=== PATIENT | male | born 1955 | race Caucasian/White ===

== ENCOUNTER 2021-05-18 10:56 | Inpatient (IN) | payer OTHER ==
[~2021-05-18] VITALS: Ht 175.3 cm; Wt 86.6 kg
[~2021-05-18 10:56] MED LIST: ALPHAGAN P5 ML OPHTHALMIC; ASPIRIN EC81 M1 PO; AUGMENTIN 875-1 EACH PO; BENICAR20 MG PO; CELEBREX 200 M200 M1 PO; HYDROXYCHLOROQ200 M1 PO; LIPITOR40 MG PO; METHOTREXATE 22.5 MG PO; SULFASALAZINE25 GM PO; TENORMIN50 MG PO; XALATAN2.5 M1 OP
[2021-05-18 12:10] VITALS: BP 145/83
[2021-05-18 14:23] LABS: HEMATOCRIT 40.8 % (42.0-52.0); HEMOGLOBIN 13.6 gm/dL (14.0-18.0); MCH 31.9 pg (26.0-34.0); MCHC 33.3 g/dL (28.0-37.0); MCV 95.7 fL (80.0-100.0); RBC 4.26 mil/uL (4.50-6.00); RDW 13.6 % (10.5-14.5); WBC 5.5 thou/uL (4.0-11.0)
[2021-05-18 14:33] LABS: APTT 36.3 Seconds (24.5-32.8); INR 1.06; PROTIME 11.5 Seconds (10.5-12.1)
[2021-05-18 14:41] LABS: ALBUMIN 3.5 g/dL (3.4-5.0); ANION GAP 10 mmol/L (7-16); BUN 16 mg/dL (7-18); CALCIUM 8.9 mg/dL (8.5-10.1); CHLORIDE 106 mmol/L (98-107); CHOLESTEROL 135 mg/dL (<200); CO2 28 mmol/L (21-32); CREATININE 1.1 mg/dL (0.7-1.3); GLUCOSE 91 mg/dL (74-106); HDL CHOLESTEROL 40 mg/dL (>40); LDL CHOLESTEROL 70 mg/dL (<100); POTASSIUM 4.1 mmol/L (3.5-5.1); SGOT 16 U/L (15-37); SGPT 21 U/L (30-65); SODIUM 144 mmol/L (136-145); TC:HDL 3.4 Ratio (Not establshd); TOTAL BILIRUBIN 1.3 mg/dL (0.2-1.0); TOTAL PROTEIN 6.7 g/dL (6.4-8.2); TRIGLYCERIDE 129 mg/dL (<150); VLDL 26 mg/dL (<40)
[2021-05-18 14:42] LABS: SERUM ASSESSMENT Clear
[2021-05-18 15:00] VITALS: BP 152/90
[2021-05-18] MEDS ORDERED: METOPROLOL TART25 MG PO (16:21)
--- NOTE | 2021-05-18 18:16 | NUR ---
PT TRANFERED TO THE UNIT FROM [facility] TO HAVE OPEN HEART SURGERY IN THE AM. PT ORIENTED TO ROOM AND BEDSPACE. BLOOD TO LAB FOR TESTING - NASAL SWAB/ URINE TO LAB. NO CO'S OF PAIN OR NASUEA. QASIM DIET AND FLUIDS - TO BE NPO AFTER MN. UP AD TONI IN ROOM. PERMIT SIGNED - SEEN BY DR GONZALEZ. NO CO'S AT THE PRESENT TIME.
[2021-05-18 18:46] LABS: URINE BILIRUBIN NEGATIVE (Negative); URINE BLOOD NEGATIVE (Negative); URINE CLARITY CLEAR; URINE COLOR YELLOW; URINE GLUCOSE-RANDOM* NEGATIVE (Negative); URINE KETONES NEGATIVE (Negative); URINE LEUKOCYTES-REFLEX NEGATIVE (Negative); URINE NITRITE-REFLEX NEGATIVE (Negative); URINE PROTEIN (DIPSTICK) NEGATIVE (Negative); URINE SPECIFIC GRAVITY 1.015 (1.005-1.035); URINE UROBILINOGEN 0.2 E.U./dl (0.2-1.0)
[2021-05-18 20:33] LABS: ABSOLUTE NEUTROPHILS 3.6 thou/uL (1.4-8.2); BASOPHILS 1.4 % (0.0-2.0); EOSINOPHILS 4.9 % (0.0-3.0); HEMATOCRIT 39.7 % (42.0-52.0); HEMOGLOBIN 13.3 gm/dL (14.0-18.0); LYMPHOCYTES 23.7 % (24.0-44.0); MCH 31.8 pg (26.0-34.0); MCHC 33.5 g/dL (28.0-37.0); MCV 95.1 fL (80.0-100.0); MONOCYTES 9.8 % (1.0-8.0); PLATELET COUNT 190 thou/uL (150-400); POLYS 60.2 % (36.0-66.0); RBC 4.18 mil/uL (4.50-6.00); RDW 13.5 % (10.5-14.5)
[2021-05-18 20:43] VITALS: BP 126/77
[2021-05-18 20:45] VITALS: BP 127/78
[2021-05-19] VITALS (10 sets, daily range): BP systolic 92–125; BP diastolic 34–79
[2021-05-19 04:05] LABS: GLYCOHEMOGLOBIN (HGB A1C) 5.8 % (4.8-5.6)
--- NOTE | 2021-05-19 07:57 | NUR ---
PT RECEIVED 1ST SHOWER LAST EVENING, NPO AFTER MNOC FOR CABG LATER THIS AM, NO C/O PAIN THRU THE NOC, VSS, REPORT GIVEN TO NEXT SHIFT TO CON'T PPOC.
--- NOTE | 2021-05-19 10:33 | NUR ---
ORDERS RECEIVED. Pt IN OR FOR CABG. WILL AWAIT POST-OP ORDERS.
--- NOTE | 2021-05-19 10:34 | NUR ---
ASSUMED CARE OF PATIENT. PATIENT TO GO FOR CABG. BATH THIS MORNING. BLOOD CONSENTS SIGNED. PATIENT TRANSPORTED TO PREOP.
--- NOTE | 2021-05-19 10:54 | NUR ---
OT AWAITING POST OP ORDERS CABG IS THIS MORNING
--- NOTE | 2021-05-19 14:05 | NUR ---
PT TRANSFERRED TO [facility] FOR CABG. PT TRANSFERRED TO ICU POST CABG. LIVES WITH . HAS [employer] INS. CM WILL FOLLOW FOR DC NEEDS.
--- NOTE | 2021-05-19 15:31 | NUR ---
CONSULT 1352-02 WAS COMPLETED BY THIS SURVEY RESEARCHER. PATIENT SAID HE ALREADY COMPLETED HIS SPOA FOR HEALTHCARE THROUGH HIS QUALITY ASSURANCE TECHNICIAN PRIOR TO HIS BY PASS SURGERY.
[2021-05-19 16:26] LABS: HEMATOCRIT 28.1 % (42.0-52.0); MCH 32.1 pg (26.0-34.0); MCHC 33.7 g/dL (28.0-37.0); MCV 95.4 fL (80.0-100.0); RBC 2.95 mil/uL (4.50-6.00); RDW 13.6 % (10.5-14.5); WBC 14.9 thou/uL (4.0-11.0)
[2021-05-19 16:28] LABS: HEMOGLOBIN 9.5 gm/dL (14.0-18.0)
[2021-05-19 16:39] LABS: APTT 29.2 Seconds (24.5-32.8); INR 1.41; PROTIME 15.1 Seconds (10.5-12.1)
[2021-05-19 16:56] LABS: POC BE 2 mmol/L (-2.0 to +3.0); POC CA IONIZED 4.9 mg/dL (4.5-5.3); POC GLUCOSE 103 mg/dL (70-99); POC HCO3 25.6 mmol/L (22.0-26.0); POC HEMOGLOBIN 12.6 g/dL (14.0-18.0); POC POTASSIUM 4.4 mmol/L (3.5-5.1); POC SODIUM 140 mmol/L (136-145); POC pCO2 36.1 mmHg (35.0-45.0); POC pH 7.458 (7.360-7.450)
[2021-05-19 16:57] LABS: POC BE 1 mmol/L (-2.0 to +3.0); POC CA IONIZED 4.3 mg/dL (4.5-5.3); POC GLUCOSE 117 mg/dL (70-99); POC HCO3 25.7 mmol/L (22.0-26.0); POC HEMOGLOBIN 8.8 g/dL (14.0-18.0); POC POTASSIUM 5.3 mmol/L (3.5-5.1); POC SODIUM 135 mmol/L (136-145); POC pCO2 40.8 mmHg (35.0-45.0); POC pH 7.407 (7.360-7.450)
[2021-05-19 16:57] LABS: POC BE -3 mmol/L (-2.0 to +3.0); POC CA IONIZED 4.8 mg/dL (4.5-5.3); POC GLUCOSE 123 mg/dL (70-99); POC HCO3 21.6 mmol/L (22.0-26.0); POC HEMOGLOBIN 8.8 g/dL (14.0-18.0); POC POTASSIUM 4.6 mmol/L (3.5-5.1); POC SODIUM 139 mmol/L (136-145); POC pCO2 32.9 mmHg (35.0-45.0); POC pH 7.424 (7.360-7.450)
[2021-05-19 16:57] LABS: POC BE 0 mmol/L (-2.0 to +3.0); POC CA IONIZED 4.4 mg/dL (4.5-5.3); POC GLUCOSE 108 mg/dL (70-99); POC HCO3 24.9 mmol/L (22.0-26.0); POC HEMOGLOBIN 9.2 g/dL (14.0-18.0); POC POTASSIUM 5.2 mmol/L (3.5-5.1); POC SODIUM 135 mmol/L (136-145); POC pCO2 39.1 mmHg (35.0-45.0); POC pH 7.413 (7.360-7.450)
[2021-05-19 16:57] LABS: POC BE 1 mmol/L (-2.0 to +3.0); POC CA IONIZED 4.9 mg/dL (4.5-5.3); POC GLUCOSE 106 mg/dL (70-99); POC HEMOGLOBIN 12.2 g/dL (14.0-18.0); POC POTASSIUM 4.3 mmol/L (3.5-5.1); POC SODIUM 141 mmol/L (136-145); POC pCO2 46.3 mmHg (35.0-45.0); POC pH 7.358 (7.360-7.450)
[2021-05-19 16:57] LABS: POC BE 1 mmol/L (-2.0 to +3.0); POC CA IONIZED 4.3 mg/dL (4.5-5.3); POC GLUCOSE 114 mg/dL (70-99); POC HEMOGLOBIN 9.2 g/dL (14.0-18.0); POC POTASSIUM 5.4 mmol/L (3.5-5.1); POC SODIUM 137 mmol/L (136-145); POC pCO2 38.4 mmHg (35.0-45.0); POC pH 7.423 (7.360-7.450)
[2021-05-19 16:57] LABS: POC BE -3 mmol/L (-2.0 to +3.0); POC CA IONIZED 4.6 mg/dL (4.5-5.3); POC GLUCOSE 123 mg/dL (70-99); POC HCO3 21.2 mmol/L (22.0-26.0); POC HEMOGLOBIN 9.9 g/dL (14.0-18.0); POC POTASSIUM 4.3 mmol/L (3.5-5.1); POC SODIUM 140 mmol/L (136-145); POC pCO2 33.8 mmHg (35.0-45.0); POC pH 7.407 (7.360-7.450)
[2021-05-19 16:57] LABS: POC BE 1 mmol/L (-2.0 to +3.0); POC CA IONIZED 4.3 mg/dL (4.5-5.3); POC GLUCOSE 100 mg/dL (70-99); POC HCO3 25.9 mmol/L (22.0-26.0); POC HEMOGLOBIN 9.2 g/dL (14.0-18.0); POC POTASSIUM 4.9 mmol/L (3.5-5.1); POC SODIUM 136 mmol/L (136-145); POC pCO2 41.4 mmHg (35.0-45.0); POC pH 7.404 (7.360-7.450)
--- NOTE | 2021-05-19 18:00 | NUR ---
Pt admitted to the icu sedated and intubated. acc. by Anes staff and surgery staff. All lines secure and zerod and all waveforms look good. Monitor shows NSR. Pacemaker attached but not on. Svo2 69 on monitor. Sterum dressing intact to LEVI MCT/PCT itact and draining to atrium at -20. Harrison patent good output. Ett intact and NGT intact. Fr Sher here. Will cont to monitor. Labs drawn
[2021-05-19 18:03] LABS: HEMATOCRIT 29.7 % (42.0-52.0); HEMOGLOBIN 10.1 gm/dL (14.0-18.0); MCH 32.3 pg (26.0-34.0); MCHC 33.8 g/dL (28.0-37.0); MCV 95.5 fL (80.0-100.0); RBC 3.11 mil/uL (4.50-6.00); RDW 13.5 % (10.5-14.5)
[2021-05-19 18:18] LABS: CALCIUM 8.2 mg/dL (8.5-10.1); CREATININE 1.1 mg/dL (0.7-1.3); MAGNESIUM 2.5 mg/dL (1.8-2.4); POTASSIUM 4.4 mmol/L (3.5-5.1)
[2021-05-19 18:20] LABS: INR 1.16; PROTIME 12.6 Seconds (10.5-12.1)
[2021-05-19 18:55] LABS: BE(vivo) -3.3 mmol/L (-2 to +3); HCO3 20.8 mmol/L (22.0-26.0); PCO2 33.9 mmHg (35.0-45.0); pH 7.405 (7.360-7.450); sO2 97.6 % (92.0-98.0)
--- NOTE | 2021-05-19 19:00 | NUR ---
Kaushik Meyer at the bedside and update given. All tubes explained and reasoning.She was given the ICU visiting hours and we made sure we had her phone numbers. encouraged her to get some sleep and call us whenever she wants too.
--- NOTE | 2021-05-19 19:30 | NUR ---
Report to oncoming RN.
[2021-05-19 21:18] LABS: BE(vivo) -3.2 mmol/L (-2 to +3); HCO3 21.6 mmol/L (22.0-26.0); PCO2 37.6 mmHg (35.0-45.0); PO2 76.2 mmHg (80.0-100.0); pH 7.377 (7.360-7.450); sO2 95.1 % (92.0-98.0)
[2021-05-19 21:39] LABS: CALCIUM 8.1 mg/dL (8.5-10.1); CREATININE 1.1 mg/dL (0.7-1.3); POTASSIUM 4.3 mmol/L (3.5-5.1)
[2021-05-19 22:52] LABS: BE(vivo) -4.6 mmol/L (-2 to +3); HCO3 20.3 mmol/L (22.0-26.0); PCO2 36.7 mmHg (35.0-45.0); PO2 63.3 mmHg (80.0-100.0); pH 7.361 (7.360-7.450); sO2 91.6 % (92.0-98.0)
[2021-05-20] VITALS (17 sets, daily range): BP systolic 90–112; BP diastolic 48–62
[2021-05-20 06:22] LABS: HEMATOCRIT 28.2 % (42.0-52.0); HEMOGLOBIN 9.6 gm/dL (14.0-18.0); MCH 32.7 pg (26.0-34.0); RBC 2.94 mil/uL (4.50-6.00); RDW 13.3 % (10.5-14.5); WBC 8.8 thou/uL (4.0-11.0)
[2021-05-20 06:46] LABS: CALCIUM 8.1 mg/dL (8.5-10.1); CREATININE 1.2 mg/dL (0.7-1.3); MAGNESIUM 2.3 mg/dL (1.8-2.4)
--- NOTE | 2021-05-20 07:55 | EKG ---
[place] [address] [facility] [place] [address] ELECTROCARDIOGRAM REPORT Name: SENDY MORILLO Room #: 250-P ADM IN M.R.#: [id number] Admission: 05/18/21 Attend Phys: Roman Osorio MD Discharge: Date of : 55 Report #: [id number] [facility] Test Date: 2021-05-19 Test Time: 19:33:11 Pat Name: SENDY MORILLO Department: Room: 250 P Gender: M Veneer Supervisor: JONATHAN : 1955 Requested By: Austin Swain Order Number: [id number] MD: Francisco Evangelista Measurements Intervals [place] Rate: 79 P: 43 TN: 182 QRS: -17 QRSD: 110 T: 35 QT: 398 QTc: 457 Interpretive Statements Sinus rhythm Inferior infarct, old Baseline wander in lead(s) V4,V5 No previous ECG available for comparison Electronically Signed On 05-20-2021 7:55:30 CREW LEADER GLUING by Francisco Evangelista [email or web address] <ELECTRONICALLY SIGNED> By: Francisco Evangelista MD, [facility] 05/20/21 0755 [id number] 32 Francisco Evangelista MD, FACC /EPI
--- NOTE | 2021-05-20 07:59 | EKG ---
[place] [address] [facility] [place] [address] ELECTROCARDIOGRAM REPORT Name: SENDY MORILLO Room #: 250-P ADM IN M.R.#: [id number] Admission: 05/18/21 Attend Phys: Roman Osorio MD Discharge: Date of : 55 Report #: [id number] [facility] Test Date: 2021-05-20 Test Time: 07:20:32 Pat Name: SENDY MORILLO Department: Room: 250 P Gender: M Administrator Pesticide: LAWRENCE : 1955 Requested By: Austin Swain Order Number: [id number] MD: Francisco Evangelista Measurements Intervals [place] Rate: 82 P: 23 TX: 176 QRS: -17 QRSD: 104 T: 16 QT: 378 QTc: 442 Interpretive Statements Sinus rhythm Borderline left axis deviation Inferior infarct, old Abnormal R-wave progression, early transition Compared to ECG 05/19/2021 19:33:11 No significant change was found Electronically Signed On 05-20-2021 7:58:51 GROCERY WORKER by Francisco Evangelista [email or web address] <ELECTRONICALLY SIGNED> By: Francisco Evangelista MD, [facility] 05/20/21 0758 9 Francisco Evangelista MD, [facility] /EPI
--- NOTE | 2021-05-20 08:24 | NUR ---
Nutrition: S/P CABG. Consult received. Will followup when out of ICU/closer to D/C to determine education needs.
--- NOTE | 2021-05-20 15:42 | NUR ---
SW reviewed chart and spoke with nursing and hospitalist. Case also discussed during ICU rounds. Pt is POD#1 CABGx5. Pt has chest tube in place and on O2 via face mask. PT/OT evals ordered. Pt lives at home with his and is normally independent with ADLs. No use of DME. SW is following to assist as needed with discharge planning.
[2021-05-21] VITALS (23 sets, daily range): BP systolic 100–129; BP diastolic 50–65
[2021-05-21 06:31] LABS: HEMATOCRIT 23.4 % (42.0-52.0); HEMOGLOBIN 8.1 gm/dL (14.0-18.0); MCH 33.1 pg (26.0-34.0); MCHC 34.7 g/dL (28.0-37.0); MCV 95.5 fL (80.0-100.0); RBC 2.45 mil/uL (4.50-6.00); RDW 13.4 % (10.5-14.5); WBC 9.3 thou/uL (4.0-11.0)
[2021-05-21 06:35] LABS: CALCIUM 8.2 mg/dL (8.5-10.1); CREATININE 1.2 mg/dL (0.7-1.3)
--- NOTE | 2021-05-21 11:23 | NUR ---
SW reviewed chart and spoke with nursing and hospitalist. Case also discussed during ICU rounds. Pt is POD#2 of CABGx5. Pt is on 11L of O2. SW met with pt at bedside. Introduced role of SW. Pt is alert/orientated x 4. Pt reports he lives at home with his in [place]. Prior to admission, pt was independent with ADLs. No use of DME. There are 7 steps to enter the home and 12 steps inside. Pt was not on O2 prior to admission. No hx of HH services or post-acute placement. Pt's PCP is Dr. Kristen Smith at [facility]. Therapy is ordered to work with pt. Pt is agreeable with HH or home O2 if needed. Plan is for pt to discharge home when medically stable. Pt has orders to transfer to CCU when a bed is available. SW is following to assist as needed with discharge planning.
[2021-05-22] VITALS (12 sets, daily range): BP systolic 93–124; BP diastolic 41–62
--- NOTE | 2021-05-22 15:55 | NUR ---
per DAHLIA Lopez request, titrated 02 down. then when pt sleeping he desated into mid to upper 80's, RN titrated 02 as needed according to the sa02 back to 9L/nc.
[2021-05-23] VITALS (10 sets, daily range): BP systolic 92–116; BP diastolic 46–62
--- NOTE | 2021-05-23 02:25 | NUR ---
Patient's , Kaushik, called from 2129 - 2134, she was updated on the patient's condition and educated on his plan of care
--- NOTE | 2021-05-23 02:51 | NUR ---
Assumed care at 1900. Pt in day 3 post op - cabg. A&0 x 4. active ROM. NSR. 2/2 pulses. Denies pain. Afebrile. hx of copd. Q2h IS. clear diminished lung sounds. windy deressing intact with green light on. l.leg surgical dressing intact. Generalized edema 1+. R. forearm periphery IV access.
[2021-05-23 04:10] LABS: HEMATOCRIT 23.4 % (42.0-52.0); HEMOGLOBIN 7.9 gm/dL (14.0-18.0); MCH 32.5 pg (26.0-34.0); MCHC 33.9 g/dL (28.0-37.0); MCV 95.9 fL (80.0-100.0); RBC 2.45 mil/uL (4.50-6.00); RDW 13.7 % (10.5-14.5); WBC 8.2 thou/uL (4.0-11.0)
[2021-05-23 04:12] LABS: CALCIUM 8.4 mg/dL (8.5-10.1); CREATININE 1.1 mg/dL (0.7-1.3)
--- NOTE | 2021-05-23 08:06 | EKG ---
[place] [address] [facility] [place] [address] ELECTROCARDIOGRAM REPORT Name: SENDY MORILLO Room #: 250-P ADM IN M.R.#: [id number] Admission: 05/18/21 Attend Phys: Roman Osorio MD Discharge: Date of : 55 Report #: [id number] [facility] Test Date: 2021-05-23 Test Time: 07:29:04 Pat Name: SENDY MOIRLLO Department: Room: 250 P Gender: M Tire Finisher: LAWRENCE : 1955 Requested By: Austin Swain Order Number: [id number] MD: Francisco Evangelista Measurements Intervals [place] Rate: 73 P: 36 [place]: 171 QRS: -16 QRSD: 95 T: 6 QT: 433 QTc: 478 Interpretive Statements Sinus rhythm Abnormal R-wave progression, early transition Inferior infarct, old Compared to ECG 05/20/2021 07:20:32 No significant changes Electronically Signed On 05-23-2021 8:05:57 CUT OUT PRESS OPERATOR by Francisco Evangelista [email or web address] <ELECTRONICALLY SIGNED> By: Francisco Evangelista MD, [facility] 05/23/21804 8 8 Francisco Evangelista MD, [facility] /EPI
--- NOTE | 2021-05-23 09:45 | NUR ---
PATIENT ABLE TO WALK WITH ASSISTANCE TODAY FROM PT, PT WALKED WITH WALKER APPROX 75 FEET WITH THE USE OF WALKER, AND GAIT BELT. PT STARTED WALKING ON 8LPM NC AND HE WAS GOING FURTHER IN DISTANCE REQUIRED HIGHER OXYGEN LEVELS VIA NC WITH MAX OF 12LPM. PT RESTING COMFORTBALY NOW IN BEDSIDE CHAIR, HR REMAINED BETWEEN 77-85 DURING WALKING. WILL CONTINUE TO FOLLOW POC.
--- NOTE | 2021-05-23 15:40 | NUR ---
SW reviewed chart and spoke with nursing and hospitalist. Case also discussed during ICU rounds. Pt is s/p CABG x 5. Pt is on 5L of O2. No weekend discharge planned. Pt to transfer to CCU when O2 is 4L or less. PT/OT is working with pt. Pt should be able to return home when medically stable. [facility] is following to assist as needed with discharge planning.
[2021-05-24] VITALS (22 sets, daily range): BP systolic 104–135; BP diastolic 54–69
--- NOTE | 2021-05-24 06:32 | NUR ---
ASSUMED CARE OF PT AT 1900. O2 VIA NC TITRATED DOWN TO 3 L BY RT, PT TOLERATED WELL. PT DENIED ANY SOA THROUGHOUT SHIFT. ON INITIAL ASSESSMENT PT ALERT AND ORIENTED X4. HOWEVER, PT GRADUALLY GOT INCREASINGLY ANXIOUS AND CONFUSED. PT REMAINS ORIENTED TO SELF, PLACE AND TIME. HOWEVER, HAS EXPRESSED MULTIPLE TIMES THAT HE "FEELS CONFUSED" AND "MY IS UPSET WITH ME BECAUSE I AM CONFUSED." PT WAS REORIENTED AND REASSURED THAT HIS WAS NOT UPSET. PT ALSO ENCOURAGED TO SLEEP. WILL CONTINUE TO MONITOR PT. PT PROGRESSING TOWARDS PLAN OF CARE EVIDENCE BY DECREASE O2 NEEDS.
--- NOTE | 2021-05-24 10:23 | O ---
[facility] [place] [address] OPERATIVE REPORT Name: SENDY MORILLO Room #: 250-P ADM IN M.R.#: [id number] Admission: 05/18/21 Attend Phys: Roman Osorio MD Discharge: Date of : 55 Report #: [id number] THIS REPORT FOR: cc: Kristen Smith MD, Tuongvan T. MD Forman, John M. MD ~ DATE OF SERVICE: 05/19/2021 PREOPERATIVE DIAGNOSIS: Coronary artery disease. POSTOPERATIVE DIAGNOSIS: Coronary artery disease. OPERATION: Coronary artery bypass x 5 including left internal mammary artery to left anterior descending artery, saphenous vein to diagonal, marginal 1 and marginal 3 and saphenous vein to posterior descending artery and endoscopic harvest, left greater saphenous vein. SURGEON: Lopez Nash MD HOT DIE PRESS FEEDER: DAHLIA Ness. ANESTHESIA: General. INDICATIONS: The patient is a 66-year-old transferred from [place] by Dr. Wallace for coronary bypass surgery. The patient presents with progressive exertional angina. Catheterization demonstrates total occlusion of the right coronary artery and 80% left main stenosis. Left ventricular function is satisfactory. FINDINGS AND TECHNIQUE: After general anesthesia was established, saphenous vein was harvested using an endoscopic approach and prepared to use as a conduit. Exposure was obtained through median sternotomy. Left internal mammary artery was harvested from chest wall. Pericardial well was made. Cannulation sutures were placed. Heparin was given. Aorta was cannulated. Right atrium was cannulated. Cardioplegia needle was positioned in the aortic root. Retrograde cardioplegic catheter was placed in the coronary sinus. Cardiopulmonary bypass was established. Aorta was cross clamped. Antegrade and retrograde cardioplegia were given. Ice was poured into the pericardial well. The heart was stopped. During electromechanical arrest, the distal anastomoses were performed. An end-to-side anastomosis was made between vein and the posterior descending branch of the right coronary. Cold cardioplegia was given. A separate segment of vein was sewn in end-to-side fashion to the distal marginal artery. [facility] [address] [place] [address] OPERATIVE REPORT Name: SENDY MORILLO Room #: [facility] IN M.R.#: [id number] Admission: 05/18/21 Attend Phys: Roman Osorio MD Discharge: Date of : 55 Report #: [id number] cardioplegia was given. The same segment of vein was sewn in end-to-side fashion to a proximal marginal artery. Cold cardioplegia was given. The same segment of vein was sewn in end-to-side fashion to the large diagonal artery. Cold cardioplegia was given. Left internal mammary artery was sewn in end-to-side fashion to the left anterior descending artery. This was a small intramyocardial LAD. The anastomosis was checked with the temperature technique and the Doppler. Cold cardioplegia was given. Two proximal anastomoses were performed. When these were complete, warm retrograde cardioplegia was given followed by warm continuous blood through the coronary sinus. When this infusion was complete, the crossclamp was removed. De-airing maneuvers were performed. The anastomoses were inspected and found to be satisfactory. As the patient warmed, nice cardiac activity resumed, chest tubes and pacing wires were placed. A marker was placed around the proximal anastomoses. When the patient was warm, he was weaned from cardiopulmonary bypass. Venous cannula was removed. Protamine was given, the aortic cannula was removed. Flows were measured in the bypass grafts. When hemostasis was satisfactory, chest was irrigated with antibiotic solution and closed in the usual fashion. The patient was taken to the Intensive Care Unit in good condition. All counts were reported as correct. <ELECTRONICALLY SIGNED> By: Lopez Nash MD 05/24/21 1023 [id number] Lopez Nash MD /nt
--- NOTE | 2021-05-24 10:23 | HC ---
[facility] [place] [address] CONSULTATION Name: SENDY MORILLO Room #: 250-[facility] IN M.R.#: [id number] Admission: 05/18/21 Attend Phys: Roman Osorio MD Discharge: Date of : 55 Report #: [id number] THIS REPORT FOR: cc: Kristen Smith MD, Tuongvan T. MD Forman, John M. MD ~ DATE OF SERVICE: 05/18/2021 We were asked to see the patient. HISTORY OF PRESENT ILLNESS: The patient is 66 year old transferred here from [place] for coronary artery bypass surgery. The patient presented to Dr. Alcaraz and his colleagues with exertional shortness of breath since early spring. The calcium score was elevated and with the symptoms of exertional angina and shortness of breath, a cardiac catheterization was done. This showed total occlusion of the right coronary artery with left to right collateral filling and 80% left main stenosis. Left ventricular function is satisfactory. The patient was transferred here for definitive treatment. PAST MEDICAL HISTORY: Significant for dyslipidemia and hypertension. The patient denies diabetes mellitus. MEDICATIONS: At home includes atorvastatin, olmesartan. The patient also has glaucoma and he uses eyedrops. FAMILY HISTORY: Positive for stroke. SOCIAL HISTORY: Reveals the patient is . 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 ALLERGIES: None known. REVIEW OF SYSTEMS: GENERAL: The patient denies fever, chills, weight change. EYES: Denies vision change. HEENT: Denies headache hearing problems, sinus problems. CARDIAC: Exertional angina, no palpitations. RESPIRATORY: Shortness of breath with exertion. No cough, no hemoptysis. MUSCULOSKELETAL: He has some arthritis. NEUROLOGIC: No motor or sensory dysfunction. HEMATOLOGIC AND LYMPHATIC: No anemia, no bruisability or bleeding. SKIN: No rashes or infections. ENDOCRINE: No goiter, no tremor. GENITOURINARY: No burning, frequency, or urgency. GASTROINTESTINAL: No nausea, vomiting, diarrhea. [facility] [address] [place] [address] CONSULTATION Name: MORILLOSENDY ALEXANDER Room #: [facility] IN ..#: [id number] Admission: 05/18/21 Attend Phys: Roman Osorio MD Discharge: Date of : 55 Report #: [id number] PHYSICAL EXAMINATION: GENERAL: The patient is lying in bed, seems comfortable. VITAL SIGNS: Blood pressure 152/90, heart rate 74, temperature 36.5, O2 sat 95% on room air. HEENT: No scleral icterus. No arcus. NECK: No mass, no bruit detected. CHEST: Clear to auscultation. HEART: Rhythm is regular, without murmur. ABDOMEN: Soft, no mass, no tenderness. EXTREMITIES: No clubbing, cyanosis or edema. SKIN: No rash or infection. NEUROLOGIC: No motor or sensory dysfunction. VASCULAR: 2+ distal pulses. Some superficial varicosities along the calf, but saphenous vein appears satisfactory. PSYCHIATRIC: Oriented x 3. Shows insight into problem and is a pleasant fellow. ASSESSMENT AND PLAN: The patient has important left main and right coronary disease with reasonable ventricular function and progressive exertional angina. We have admitted the patient for coronary artery bypass surgery. Risks and details were discussed. Options and alternatives were reviewed. The patient understands all of this and he wishes to proceed. Risks include but are not limited to bleeding, infection, anesthesia risks, heart and lung problems, stroke and . The patient understands and wishes to proceed. We have scheduled surgery for tomorrow mid morning. Thank you for the consult. <ELECTRONICALLY SIGNED> By: Lopez Nash MD 05/24/21 1023 1555 09 Lopez Nash MD /nt
[2021-05-25] VITALS (23 sets, daily range): BP systolic 99–130; BP diastolic 45–67
[2021-05-26] VITALS (8 sets, daily range): BP systolic 105–135; BP diastolic 58–72
--- NOTE | 2021-05-26 06:00 | NUR ---
A VERY DELIGHTFUL GENTLEMAN. 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 LUNGS CLEAR AND DIMINISHED. O2 SDAT 92 TO 94 % ON 2 L NC. SLEPT AT INTERVALS TONIGHT. REMAINS A CCU OVERFLOW. NO BEDS YET. PT STATES TO FEEL SO MUCH BETTER TODAY. ANXIOUS TO GO HOME. PROGRESSING TOWARD GOALS.
--- NOTE | 2021-05-26 10:23 | NUR ---
Nutrition: pt admitted S/P CABG x 5 and seen due to LOS. Current weight around reported UBW of 195#. Reports appetite resuming post surgery, PO documented as 50-100% of meals. BM 05/25. Pt voiced familiarity with heart healthy diet and did not wish diet review at present. Awaiting bed availability in CCU at this time. Place as low nutrition risk.
--- NOTE | 2021-05-26 17:01 | NUR ---
PT IS ON 2L AT REST BUT NEEDING 8L WITH ACTIVITY. CARE TEAM MONITORING. CM FOLLOWING REGARDING DC PLANNING.
[2021-05-27] VITALS (7 sets, daily range): BP systolic 98–120; BP diastolic 51–64
--- NOTE | 2021-05-27 06:00 | NUR ---
BATHED. UP TO CARDIAC. PT IS ANXIOUS TO TAKE A SHOWER AND TX TO CCU
--- NOTE | 2021-05-27 06:00 | NUR ---
PT SLEPT ALL NIGHT. STATES HE HAD THE BEST SLEEP HE HAS HAD IN MONTHS. VSS SINUS RHYTHM. REMAINS A CCU TELE OVERFLOW. AWAITING A BED TO BE AVAILABLE. LEVI CHEST DRESSING INTACT. PROGRESSING TOWARD GOALS.
--- NOTE | 2021-05-27 16:49 | NUR ---
Cm reviewed chart and spoke with nurse. Pt's care discussed during ICU rounds this day. Pt had been on 2L at rest and 8L with activity this day. Pt and cards worked with pt this day and indicated that pt could be 2L at rest and 5L with activity at 87%. Pt sats at rest then went up to needing 4L this evening. 5n was consulted for review for possible admission. Cm following.
[2021-05-28] VITALS (11 sets, daily range): BP systolic 95–150; BP diastolic 52–77
[2021-05-28 05:16] LABS: HEMATOCRIT 25.7 % (42.0-52.0); HEMOGLOBIN 8.8 gm/dL (14.0-18.0); MCH 32.9 pg (26.0-34.0); MCHC 34.4 g/dL (28.0-37.0); MCV 95.5 fL (80.0-100.0); RBC 2.69 mil/uL (4.50-6.00); RDW 13.8 % (10.5-14.5); WBC 8.6 thou/uL (4.0-11.0)
[2021-05-28 05:20] LABS: CALCIUM 8.6 mg/dL (8.5-10.1); CREATININE 1.3 mg/dL (0.7-1.3); POTASSIUM 4.1 mmol/L (3.5-5.1)
--- NOTE | 2021-05-28 06:15 | NUR ---
Pt remains stable in this shift. No event tonight. Report SOB with exertion, required 4-5 liters of O2. Remains NSR on monitor, VSS. Continue progressing toward goals.
[2021-05-28] MEDS ORDERED: OXYGEN MISCELL (13:12)
[2021-05-28] MEDS ORDERED: IPRAT-ALBUT 0.5-3 ML INH (13:15)
[2021-05-28] MEDS ORDERED: TYLENOL325 MG PO (13:15)
[2021-05-28] MEDS ORDERED: PREDNISONE 20 M20 MG PO (13:15)
[2021-05-28] MEDS ORDERED: FERREX 150 PLU1 EAC1 PO (13:15)
[2021-05-28] MEDS ORDERED: PEPCID20 MG PO (13:15)
[2021-05-28] MEDS ORDERED: COLACE100 MG PO (13:15)
[2021-05-28] MEDS ORDERED: NEBULIZER MISCELL (13:17)
[2021-05-28] MEDS ORDERED: MIRALAX119 GM PO (13:22)
--- NOTE | 2021-05-28 15:12 | NUR ---
ALERT AND ORIENTED, VITALS STABLE. UP TO CHAIR WITH MINIMAL ASSISTANCE. TOLERATING DIET W/O NAUSEA. PATIENT AND SPOUSE REQUEST FOR DC TODAY. RT ACTIVITY PULSE OX OBTAINED AND DAVID WITH [employer]PER[employer] ARRANGED FOR HOME O2 AND HOME HEALTH SERVICES. DC ORDERS RECEIVED, IV DC'D. MESSAGE SENT TO [facility]:INCISION CARE AND FOLLOW UP. INSTRUCTIONS ADDED TO DC PAPERWORK. DC INSTRUCTIONS AND NEW PRESCRIPTION GIVEN TO PATIENT AND SPOUSE, QNS ANSWERED. IV DC'D. PATIENT TRANSPORTED VIA WHEELCHAIR TO CAR, O2 TANK SENT WITH PATIENT.
--- NOTE | 2021-05-28 15:15 | NUR ---
Met with patient and spouse and spouse reports planned dc today. No preference for home health care. Referral to [facility]. Verified phone number and address. [facility] accepting but cannot see patient until Wednesday. and patient agreeable. Patient with need for home oxygen. No preference for DME. faxed referral to [facility] for home oxygen. Gave tank for transport home. Informed to call [facility] once arrive home. No further needs
== END 2021-05-28 15:00 | disposition home health service (06) | DRG 235 ==
LOC: 2N 10:56 → ICU 12:36 → 2N 12:36 → ICU 05-19 11:30
PROVIDERS: Nurse Practitioner Family; Physician Assistant; Surgery Vascular Surgery; ADMIT Hospitalist; ATTEND Hospitalist
PROC: 06BQ4ZZ Excision of Left Saphenous Vein, Percutaneous Endoscopic Approach (ICD-10-PCS; principal; 2021-05-19)
PROC: 021309W Bypass Coronary Artery, Four or More Arteries from Aorta with Autologous Venous Tissue, Open Approach (ICD-10-PCS; principal; 2021-05-19)
PROC: 02HP32Z Insertion of Monitoring Device into Pulmonary Trunk, Percutaneous Approach (ICD-10-PCS; principal; 2021-05-19)
PROC: 30233R1 Transfusion of Nonautologous Platelets into Peripheral Vein, Percutaneous Approach (ICD-10-PCS; principal; 2021-05-19)
PROC: 02100Z9 Bypass Coronary Artery, One Artery from Left Internal Mammary, Open Approach (ICD-10-PCS; principal; 2021-05-19)
PROC: 5A1221Z Performance of Cardiac Output, Continuous (ICD-10-PCS; principal; 2021-05-19)
PROC: 30233K1 Transfusion of Nonautologous Frozen Plasma into Peripheral Vein, Percutaneous Approach (ICD-10-PCS; principal; 2021-05-19)
PROC: 5A0945A Assistance with Respiratory Ventilation, 24-96 Consecutive Hours, High Flow/Velocity Cannula (ICD-10-PCS; 2021-05-20)
PROC: 5A0935A Assistance with Respiratory Ventilation, Less than 24 Consecutive Hours, High Flow/Velocity Cannula (ICD-10-PCS; 2021-05-22)
DX: I25.118 Atherosclerotic heart disease of native coronary artery with other forms of angina pectoris (principal); J96.01 Acute respiratory failure with hypoxia; J44.1 Chronic obstructive pulmonary disease with (acute) exacerbation; J98.11 Atelectasis; D62 Acute posthemorrhagic anemia; J90 Pleural effusion, not elsewhere classified; D84.9 Immunodeficiency, unspecified; I10 Essential (primary) hypertension; E78.5 Hyperlipidemia, unspecified; D64.9 Anemia, unspecified; H40.9 Unspecified glaucoma; M06.9 Rheumatoid arthritis, unspecified; Z86.018 Personal history of other benign neoplasm; Z80.9 Family history of malignant neoplasm, unspecified; Z83.3 Family history of diabetes mellitus; Z82.49 Family history of ischemic heart disease and other diseases of the circulatory system; Z82.3 Family history of stroke; Z87.891 Personal history of nicotine dependence; Z79.899 Other long term (current) drug therapy; Z79.82 Long term (current) use of aspirin
CPT/HCPCS: 10078; 10081; 10203; 10797; 47000; 47001; 47002; 47297; 48889; 50010; 50011; 50249; 50668; 51301; 52259; 52287; 53327; 53358; 54118; 56455; 56524; 56525; 56526; 56527; 56528; 56531; 56534; 56668; 56719; 56760; 56898; 57093; 57167; 58585; 58856; 58901; 58918; 62110; 62950; 65002; 65003; 65020; 65090; 65135